=== PATIENT | male | born 1965 | race Caucasian/White ===

== ENCOUNTER 2018-11-20 15:31 | Emergency (ER) | payer SELFPAY, OTHER, MEDICAID ==
[2018-11-20] MEDS: HYDROCODONE/APAP (5/325) TAB PO (18:48)
== END 2018-11-20 18:58 | disposition home or self-care (01) ==
LOC: FTE 15:31
DX: M79.671 Pain in right foot (principal); R40.2252 Coma scale, best verbal response, oriented, at arrival to emergency department; R40.2362 Coma scale, best motor response, obeys commands, at arrival to emergency department; R40.2142 Coma scale, eyes open, spontaneous, at arrival to emergency department
CPT/HCPCS: 99283